=== PATIENT | male | born 1965 | race Caucasian/White ===

== ENCOUNTER 2017-06-07 14:13 | Emergency (ER) | payer OTHER ==
[~2017-06-07] VITALS: Ht 175.3 cm; Wt 94.9 kg
[2017-06-07 14:23] VITALS: BP 151/96
--- NOTE | 2017-06-07 14:28 | NUR ---
PATIENT TAKEN TO OF #4
--- NOTE | 2017-06-07 14:30 | NUR ---
PATIENT PRESENTS TO ED WITH C/O LT EAR PAIN 6/10 SINCE LAST NIGHT; DENIES DISCHARGE, VERTIGO, N/V/D HX; ANXIETY RX; CELEXA; DENIES N/V/D; SKIN IS PINK/WARM/DRY; AAOX4 WITH EVEN AND STEADY GAIT; LUNGS CLEAR BL; HR EVEN AND REGULAR; PT DENIES ANY FEVER, CP, SOB, OR COUGH AT THIS TIME; PATIENT STATES PAIN OF 6/10 AT THIS TIME; VSS; PATIENT POSITIONED FOR COMFORT; ER MD MADE AWARE OF PT STATUS.
--- NOTE | 2017-06-07 14:30 | NUR ---
DR. MORGAN EVALUATING PATIENT
== END 2017-06-07 14:41 | disposition home or self-care (01) ==
LOC: MED 14:13
DX: H66.92 Otitis media, unspecified, left ear (principal)
CPT/HCPCS: 99283